=== PATIENT | female | born 1980 | race Caucasian/White ===

== ENCOUNTER 2019-01-10 18:57 | Emergency (ER) | payer OTHER ==
[2019-01-10 19:01] VITALS: BP 142/75
--- NOTE | 2019-01-10 19:13 | ER Report ---
History and Physical Time Seen By MD: 19:13 Hx. of Stated Complaint: PT CUT LEFT HAND WITH KNIFE PREPARING DINNER. HPI/ROS CHIEF COMPLAINT: Laceration HISTORY OF PRESENT ILLNESS: 38 year old female presents to ED with laceration to webbing between thumb and index finger. Patient stabbed her finger when she was trying to open a can of beans. Patient lives in [place] and they drove straight here. Patient reports pain a 5 out of 10; she hasn't taken anything for the pain. Patient has full ROM of thumb, no appearance of tendon injury. REVIEW OF SYSTEMS: Respiratory: No cough, no dyspnea. Cardiovascular: No chest pain, no palpitations. Gastrointestinal: No vomiting, no abdominal pain. Musculoskeletal: No back pain. Integumentary: Laceration to webbing between thumb and first finger. Allergies: Coded Allergies: No Known Drug Allergies (Unverified , 01/10/19) Home Meds Active Scripts Cephalexin 500 Mg Tab (KEFLEX 500 MG TAB) 500 Mg Tablet, 500 MG PO Q6H, #20 TAB Prov:DENA ROCHA 01/10/19 Past Medical/Surgical History Past medical hx of asthma, MSk fractures of left foot and finger. Past surgical hx of hysterectomy. Reviewed Nurses Notes: Yes Hx Substance Use Disorder: No Hx Alcohol Use: No Constitutional Vital Sign - Last 24 Hours 01/10/19 01/10/19 01/10/19 01/10/19 19:00 19:01 19:12 19:27 Temp 99.1 Pulse 61 73 79 Resp 16 B/P (MAP) 142/75 (97) 142/75 Pulse Ox 95 93 92 O2 Delivery Room Air Physical Exam General Appearance: The patient is alert, has no immediate need for airway protection and no current signs of toxicity. Eyes: Pupils equal and round no injection. Respiratory: Chest is non tender, lungs are clear to auscultation. Cardiac: regular rate and rhythm Gastrointestinal: Abdomen is soft and non tender, no masses, bowel sounds normal. Musculoskeletal: Neck: Neck is supple and non tender. Extremities have full range of motion and are non tender. Skin: Laceration to webbing between thumb and index finger. 1cm laceration. Patient has full ROM of thumb- no tendon injury noted. [DIFFERENTIAL DIAGNOSIS: After history and physical exam differential diagnosis was considered for laceration Medical Decision Making Data Points Laboratory Hematology Test 01/10/19 20:25 Chemistry Test 01/10/19 20:25 ED Course/Re-evaluation ED Course Procedure: Laceration repair. Verbal consent was obtained from the patient. The 1 cm laceration on the webbing between thumb and index finger was anesthetized in the usual fashion. The wound was scrubbed, draped and explored to its base with a gloved finger. There were no deep structures involved. No tendon injury was identified. The wound was repaired with. The wound repair was simple. The procedure was performed by Thania Friedman, [employer] student under my direct supervision. Decision to Disposition Date: Jan 10, 2019 Decision to Disposition Time: 20:08 Depart Departure Latest Vital Signs Vital Signs Date Time Temp Pulse Resp B/P (MAP) Pulse Ox O2 Delivery O2 Flow Rate FiO2 01/10/19 19:27 79 92 01/10/19 19:01 99.1 16 142/75 Room Air Impression: Primary Impression: Laceration Condition: Improved Disposition: HOME OR SELF-CARE New Scripts Cephalexin 500 Mg Tab (KEFLEX 500 MG TAB) 500 Mg Tablet 500 MG PO Q6H, #20 TAB Prov: DENA ROCHA 01/10/19 Patient Instructions: Laceration (ED) Additional Instructions: Keep wound dry for 48 hours. Follow up with your primary care provider in the next 7-10 days to have sutures removed. Monitor for signs of infection; redness, swelling, heat, discharge, increasing pain or red streaking. Take Tylenol or Ibuprofen as needed for pain. Return to the ER with any concerns. You may change dressing as needed. DENA ROCHA Jan 10, 2019 19:13
[2019-01-10] MEDS ORDERED: DIPHTH/TETANUS/ACEL. PERTUSSIS IM ONLY ONE (19:15)
[2019-01-10] MEDS ORDERED: CEPH500T7 PO (20:07)
== END 2019-01-10 20:29 | disposition home or self-care (01) ==
LOC: ER 19:14
DX: S61.412A Laceration without foreign body of left hand, initial encounter (principal)
CPT/HCPCS: 86703; 86706; 86803; 87340; 90471; 90715; 99283